=== PATIENT | male | born 1990 | race Caucasian/White ===

== ENCOUNTER 2022-07-20 17:04 | Outpatient (CLI) | payer BC | END 2022-07-20 17:05 | disposition home or self-care (01) | LOC: SCSRAD 17:04 | PROVIDERS: ATTEND Family Medicine | DX: J20.9 Acute bronchitis, unspecified (principal); R06.02 Shortness of breath; K44.9 Diaphragmatic hernia without obstruction or gangrene | CPT/HCPCS: 71046 ==